=== PATIENT | female | born 1985 | race African-American/Black ===

== ENCOUNTER 2021-03-17 05:19 | Emergency (ER) | payer MEDICAID ==
[~2021-03-17] VITALS: Ht 162.6 cm; Wt 68.0 kg
[2021-03-17] MEDS ORDERED: SODIUM CHLORIDE 0.9% 1,000 ML IV ONE (05:45)
[2021-03-17] MEDS ORDERED: LEVETIRACETAM 1000MG PREMIX 100 ML IV ONE (05:45)
[2021-03-17 06:15] LABS: CHLORIDE 102 mEq/L (98-107)
[2021-03-17 06:18] LABS: ETHANOL BLOOD < 10 mg/dL
[2021-03-17 06:40] LABS: CLARITY URINE CLEAR (CLEAR); COLOR URINE DARK YELLOW (YELLOW); KETONES URINE TRACE (NEGATIVE); LEUKOCYTE ESTERASE URINE 1+ (NEGATIVE); NITRITE URINE POSITIVE (NEGATIVE); OCCULT BLOOD URINE NEGATIVE (NEGATIVE); PH URINE 6.5 (4.5-8.0); PROTEIN URINE 1+ (NEGATIVE); SPECIFIC GRAVITY URINE 1.017 (1.005-1.030)
[2021-03-17 06:54] LABS: METHADONE URINE SCREEN NEGATIVE (NEGATIVE); OPIATES URINE SCREEN NEGATIVE (NEGATIVE)
[2021-03-17 06:55] LABS: *AMPHETAMINES SCREEN URINE NEGATIVE (NEGATIVE); *BARBITURATES SCREEN URINE NEGATIVE (NEGATIVE); *BENZODIAZEPINES SCREEN URINE NEGATIVE (NEGATIVE); *COCAINE SCREEN URINE NEGATIVE (NEGATIVE); CANNABINOID URINE SCREEN NEGATIVE (NEGATIVE); PHENCYCLIDINE URINE SCREEN NEGATIVE (NEGATIVE)
[2021-03-17] MEDS ORDERED: POTASSIUM CHLORIDE 20MEQ TABLET SR PO ONE (07:45)
[2021-03-17] MEDS ORDERED: KEPP500 MT (08:07)
[2021-03-17] MEDS ORDERED: NITR-87 MT (08:07)
[2021-03-17 08:13] VITALS: BP 124/78
[2021-03-17 08:14] LABS: HEMATOCRIT. 27.4 % (36.0-48.0); HEMOGLOBIN. 9.5 g/dL (12.0-16.0); MEAN CORPUSCULAR HEMOGLOBIN 34.2 pg (28.0-32.0); MEAN CORPUSCULAR VOLUME 98.6 fL (81.0-99.0); RED BLOOD CELL COUNT 2.78 mill/uL (4.2-5.4); RED CELL DISTRIBUTION WIDTH 18.5 % (11.6-14.6)
[2021-03-17 08:39] LABS: PLATELET 35 x1000/uL (130-400)
[2021-03-17 09:08] LABS: NUCLEATED RED BLOOD CELLS 1 /100 WBC
[2021-03-17 09:09] LABS: PLATELET ESTIMATE MARKEDLY DECREASED
[2021-03-17 09:26] LABS: BASOPHILS % 0.4 % (0.0-2.0); EOSINOPHILS % 0.1 % (0.0-5.0); HEMATOCRIT. 31.3 % (36.0-48.0); HEMOGLOBIN. 10.7 g/dL (12.0-16.0); LYMPHOCYTES % 10.8 % (20.0-50.0); MEAN CORPUSCULAR HEMOGLOBIN 34.3 pg (28.0-32.0); MEAN CORPUSCULAR VOLUME 100.2 fL (81.0-99.0); MEAN PLATELET VOLUME 9.9 fl (7.4-10.4); MONOCYTES % 9.7 % (2.0-8.0); RED BLOOD CELL COUNT 3.13 mill/uL (4.2-5.4); RED CELL DISTRIBUTION WIDTH 18.6 % (11.6-14.6)
[2021-03-17 09:41] LABS: PLATELET 40 x1000/uL (130-400)
[2021-03-17 10:20] LABS: PLATELET ESTIMATE MARKEDLY DECREASED
== END 2021-03-17 09:30 | disposition home or self-care (01) ==
LOC: ER 05:19
DX: G40.909 Epilepsy, unspecified, not intractable, without status epilepticus (principal); N39.0 Urinary tract infection, site not specified; D69.6 Thrombocytopenia, unspecified; D64.9 Anemia, unspecified
CPT/HCPCS: 36415; 70450; 80053; 80305; 80320; 81003; 81025; 85025; 93005; 96365; 99285; J1953; J7030; G0480

== ENCOUNTER 2021-06-22 15:12 | Emergency (ER) | payer MEDICAID ==
[~2021-06-22] VITALS: Ht 167.6 cm; Wt 59.0 kg
[~2021-06-22 15:12] MED LIST: KEPP500 MT; NITR-87 MT
[2021-06-22 15:23] VITALS: BP 135/86
== END 2021-06-22 18:04 | disposition left against medical advice (07) ==
LOC: ER 15:12
DX: Z53.21 Procedure and treatment not carried out due to patient leaving prior to being seen by health care provider (principal); I49.9 Cardiac arrhythmia, unspecified
CPT/HCPCS: 93005